=== PATIENT | male | born 1960 | race Caucasian/White ===

== ENCOUNTER 2018-02-17 06:30 | Emergency (ER) | payer OTHER ==
[2018-02-17] MEDS: predniSONE 20 MG TAB PO (07:12)
[2018-02-17] MEDS: ALBUTEROL 0.083% (NEB) 2.5 MG/3 ML AMP NEB (07:41)
[2018-02-17] MEDS: IPRATROPIUM (NEB) 0.5 MG/2.5 ML AMP NEB (07:41)
[2018-02-17] MEDS: morphine 4 MG/ML VIAL IV (07:42)
[2018-02-17] MEDS: ONDANSETRON 4 MG INJ IV (07:48)
[2018-02-17] MEDS: LABETALOL HCL 20MG INJ IV ×2 (07:52→08:24)
[2018-02-17 08:03] LABS: TROPONIN-I 0.015 ng/ml (0.000-0.120)
[2018-02-17 09:14] LABS: ADD MAN DIFF? NO
[2018-02-17 09:17] LABS: BASOPHILS % 0.5 % (0.0-2.0); EOSINOPHILS # 0.3 10^3/ul (0.0-0.5); EOSINOPHILS % 5.8 % (0.0-7.0); HEMATOCRIT 31.4 % (42.0-52.0); HEMOGLOBIN 10.1 g/dl (14.0-18.0); LYMPHOCYTES # 1.3 10^3/ul (0.8-2.9); LYMPHOCYTES % 22.2 % (15.0-51.0); MEAN CORPUSCULAR HEMOGLOBIN 26.5 pg (29.0-33.0); MEAN CORPUSCULAR HGB CONC 32.2 g/dl (32.0-37.0); MEAN CORPUSCULAR VOLUME 82.4 fl (82.0-101.0); MEAN PLATELET VOLUME 11.3 fl (7.4-10.4); MONOCYTE # 0.3 10^3/ul (0.3-0.9); MONOCYTES % 5.6 % (0.0-11.0); NEUTROPHIL # 3.8 10^3/ul (1.6-7.5); NEUTROPHILS % 65.4 % (39.0-77.0); PLATELET COUNT 161 10^3/UL (140-415); RED BLOOD COUNT 3.81 10^6/ul (4.70-6.10); RED CELL DISTRIBUTION WIDTH 14.8 % (11.5-14.5)
[2018-02-17 09:17] LABS: WHITE BLOOD COUNT 5.9 10^3/ul (4.8-10.8)
[2018-02-17 09:23] LABS: ALANINE AMINOTRANSFERASE 34 IU/L (13-69); ALBUMIN 4.3 g/dl (3.3-4.9); ALBUMIN/GLOBULIN RATIO 1.22; ALKALINE PHOSPHATASE 79 IU/L (42-121); ANION GAP 15 (5-13); ASPARTATE AMINO TRANSFERASE 54 IU/L (15-46); BILIRUBIN,INDIRECT 0.9 mg/dl (0-1.1); BILIRUBIN,TOTAL 0.9 mg/dl (0.2-1.3); BLOOD UREA NITROGEN 53 mg/dl (7-20); CALCIUM 9.7 mg/dl (8.4-10.2); CARBON DIOXIDE 27 mmol/L (21-31); CHLORIDE 100 mmol/L (97-110); CREATININE 3.84 mg/dl (0.61-1.24); Estimated GFR 16 mL/min (>60); GLUCOSE 131 mg/dl (70-220); POTASSIUM 3.5 mmol/L (3.5-5.1); SODIUM 142 mmol/L (135-144); TOTAL PROTEIN 7.8 g/dl (6.1-8.1)
[2018-02-17] MEDS: FUROSEMIDE 40 MG INJ IV (09:26)
[2018-02-17 09:34] LABS: B-TYPE NATRIURETIC PEPTIDE 17800 PG/ML (0-125)
[2018-02-17 10:14] LABS: INR 1.05; PROTIME 13.8 Sec (11.9-14.9); PT RATIO 1.1
[2018-02-17 10:15] LABS: PARTIAL THROMBOPLASTIN TIME 31.2 Sec (23.0-35.0)
[2018-02-17] MEDS: NITROGLYCERIN 50 MG/D5W (PMX) 250 ML IV (10:28)
[2018-02-17] MEDS: NICARDipine HCL 30 MG CAPSULE PO (11:31)
== END 2018-02-17 13:50 | disposition short-term general hospital (02) ==
LOC: FTE 06:30 → E/R 13:50
DX: I16.1 Hypertensive emergency (principal); I11.0 Hypertensive heart disease with heart failure; I50.9 Heart failure, unspecified; I10 Essential (primary) hypertension
CPT/HCPCS: 36415; 71045; 80053; 83880; 84484; 85025; 85610; 85730; 93005; 94664; 96374; 96375; 96376; 99291-25